=== PATIENT | male | born 1995 | race Caucasian/White ===

== ENCOUNTER 2017-10-30 15:01 | Emergency (ER) | payer SELFPAY ==
[2017-10-30 15:36] LABS: ADD MAN DIFF? NO
[2017-10-30 15:44] LABS: BASO % 1 % (0-3); EOS # 0.1 x10^3/uL (0.0-0.7); EOS % 1 % (0-3); HEMATOCRIT 49.5 % (39.0-53.0); HEMOGLOBIN 17.2 g/dL (13.0-17.5); LYMPH # 1.6 x10^3/uL (1.0-4.8); LYMPH % 19 % (24-48); MEAN CORPUSCULAR HEMOGLOBIN 33 pg (25-35); MEAN CORPUSCULAR HGB CONC 35 g/dL (31-37); MEAN CORPUSCULAR VOLUME 94 fL (79-100); MONO # 0.9 x10^3/uL (0.0-1.1); MONO % 11 % (0-9); NEUT # 5.9 x10^3uL (1.8-7.7); NEUT % 69 % (31-73); PLATELET COUNT 210 x10^3/uL (140-400); RED BLOOD COUNT 5.29 x10^6/uL (4.30-5.70); RED CELL DISTRIBUTION WIDTH 14.1 % (11.5-14.5); WHITE BLOOD COUNT 8.5 x10^3/uL (4.0-11.0)
[2017-10-30] MEDS: IV NORMAL SALINE 1000ML BAG 1,000 ML IV ×2 (15:46)
[2017-10-30] MEDS: LIDO:MAALOX:DONNATAL 1:1:1 15 ML SINGLE DOSE SWSW ×2 (15:46)
[2017-10-30] MEDS: KETOROLAC 30 MG/ML INJ. IV ×2 (15:46)
[2017-10-30 15:47] LABS: AMPHETAMINE/METHAMPHETAMINE NEG (NEG); BARBITURATES NEG (NEG); BENZODIAZEPINES NEG (NEG); CANNABINOIDS POS (NEG); COCAINE NEG (NEG); ETHANOL, URINE NEG (NEG); METHADONE NEG (NEG); OPIATES NEG (NEG); PHENCYCLIDINE NEG (NEG)
[2017-10-30 15:48] LABS: INR 1.1 (0.8-1.1); PARTIAL THROMBOPLASTIN TIME 31 SEC (24-38); PROTHROMBIN TIME PATIENT 13.9 SEC (11.7-14.0)
[2017-10-30 16:06] LABS: ETHANOL < 10 mg/dL (0-10)
[2017-10-30 16:13] LABS: ALBUMIN 4.6 g/dL (3.4-5.0); ALBUMIN/GLOBULIN RATIO 1.4 (1.0-1.7); ALK PHOS 79 U/L (46-116); ALT (SGPT) 45 U/L (16-63); ANION GAP 12 (6-14); AST (SGOT) 25 U/L (15-37); BLOOD UREA NITROGEN 15 mg/dL (8-26); CARBON DIOXIDE 26 mmol/L (21-32); CHLORIDE 100 mmol/L (98-107); CREATINE KINASE 132 U/L (39-308); GLUCOSE 63 mg/dL (70-99); MAGNESIUM 2.2 mg/dL (1.8-2.4); POTASSIUM 3.6 mmol/L (3.5-5.1); SODIUM 138 mmol/L (136-145); TOTAL BILIRUBIN 0.5 mg/dL (0.2-1.0)
[2017-10-30 16:13] LABS: TROPONINI < 0.017 ng/mL (0.000-0.055)
[2017-10-30 16:20] LABS: NT-PRO BNP 10 pg/mL (0-124)
[2017-10-30 16:21] LABS: BUN/CREATININE RATIO 15 (6-20); CALCIUM 9.8 mg/dL (8.5-10.1); GFR 92.6; LIPASE 109 U/L (73-393)
[2017-10-30 16:43] LABS: D-DIMER < 0.27 ug/mlFEU (0.00-0.50)
== END 2017-10-30 17:49 | disposition home or self-care (01) ==
LOC: ER 15:01
DX: R07.89 Other chest pain (principal); R11.0 Nausea; R10.9 Unspecified abdominal pain; F41.9 Anxiety disorder, unspecified; F31.9 Bipolar disorder, unspecified; F90.9 Attention-deficit hyperactivity disorder, unspecified type; F17.210 Nicotine dependence, cigarettes, uncomplicated
CPT/HCPCS: 36415; 71045; 80053; 80307; 82550; 83690; 83735; 83880; 84484; 85025; 85379; 85610; 85730; 96374; 96375; 99285-25; G0480; J1885; J2060; J7030

== ENCOUNTER 2018-11-16 09:06 | Emergency (ER) | payer SELFPAY ==
[~2018-11-16] VITALS: Ht 172.7 cm; Wt 74.8 kg
[~2018-11-16 09:06] MED LIST: OMEP20TA63 PO
[2018-11-16] MEDS ORDERED: IV NORMAL SALINE 1000ML BAG 1,000 ML IV ONE (09:30)
[2018-11-16] MEDS ORDERED: FAMOTIDINE 20 MG/2 ML VIAL IVP ONE (09:30)
[2018-11-16] MEDS ORDERED: ONDANSETRON PF 4 MG/2 ML VIAL. IV ONE (09:30)
--- NOTE | 2018-11-16 09:43 | PHYS DOC ---
Past Medical History Past Medical History: Bipolar, Other Additional Past Medical Histor: ADHD Past Surgical History: No Surgical History Alcohol Use: Heavy Drug Use: Marijuana Adult General Chief Complaint Chief Complaint: HYPERVENTILATION HPI HPI Patient is a 23 year old male with history of bipolar, undiagnosed anxiety, who presents to the ED today with multiple complaints. Patient states this morning he woke up, did his normal routine which includes smoking cigarette, smoking 1 g of marijuana and he was on his way to work being driven by the grandfather, patient states he developed lightheadedness, he states he became short of air, he states his fingers started cramping up, he states his grandfather took him to the fire station to be evaluated and be taken to the emergency room. Patient is also complaining of nausea but no vomiting. He states he gets his marijuana from the same dealer and there is nothing unusual about the marijuana he smoked today. Patient states he is also feeling some chest tightness. He states he has had chest tightness for over 1 year. He states he has actually been seen in the ED before for chest tightness. Patient appears anxious. Unable to rate his chest tightness to me. Unable to prescribed anything that exacerbates or making his chest tightness worse. Review of Systems Review of Systems Constitutional: Denies fever or chills [] Eyes: Denies change in visual acuity, redness, or eye pain [] HENT: Denies nasal congestion or sore throat [] Respiratory: Denies cough or shortness of breath [] Cardiovascular: Reports chest tightness GI: Reports nausea. Denies abdominal pain,vomiting, bloody stools or diarrhea [] : Denies dysuria or hematuria [] Musculoskeletal: Denies back pain or joint pain [] Integument: Denies rash or skin lesions [] Neurologic: Reports lightheadedness, denies focal weakness or sensory changes [] Psych:anxiety All other systems were reviewed and found to be within normal limits, except as documented in this note. Current Medications Current Medications Current Medications Medications (Trade) Dose Ordered Sig/Cheng Start Time Stop Time Status Last Admin Dose Admin Famotidine (Pepcid Vial) 20 mg 1X ONCE 11/16/18 09:30 11/16/18 09:31 DC 11/16/18 09:40 20 MG Ondansetron HCl (Zofran) 4 mg 1X ONCE 11/16/18 09:30 11/16/18 09:31 DC 11/16/18 09:40 4 MG Sodium Chloride 1,000 ml @ 1,000 mls/hr 1X ONCE 11/16/18 09:30 11/16/18 10:29 DC 11/16/18 09:30 1,000 MLS/HR Allergies Allergies Allergies Coded Allergies Type Severity Reaction Last Updated Verified No Known Drug Allergies 09/01/15 No Physical Exam Physical Exam Constitutional: Well developed, well nourished, no acute distress, non-toxic appearance. [] HENT: Normocephalic, atraumatic, bilateral external ears normal, oropharynx moist, no oral exudates, nose normal. [] Eyes: PERRLA, EOMI, conjunctiva normal, no discharge. [] Neck: Normal range of motion, no tenderness, supple, no stridor. [] Cardiovascular:tachycardic Lungs & Thorax: Bilateral breath sounds clear to auscultation [] Abdomen: Bowel sounds normal, soft, no tenderness, no masses, no pulsatile masses. [] Skin: Warm, dry, no erythema, no rash. [] Back: No tenderness, no CVA tenderness. [] Extremities: No tenderness, no cyanosis, no clubbing, ROM intact, no edema. [] Neurologic: Alert and oriented X 3, normal motor function, normal sensory function, no focal deficits noted. [] Psychologic: Anxious Current Patient Data Vital Signs Vital Signs Date Time Temp Pulse Resp B/P (MAP) Pulse Ox O2 Delivery O2 Flow Rate FiO2 11/16/18 09:19 97.4 121 26 155/79 (104) 100 Room Air 97.4 Lab Values Laboratory Tests Test 11/16/18 09:32 White Blood Count 6.4 x10^3/uL (4.0-11.0) Red Blood Count 5.26 x10^6/uL (4.30-5.70) Hemoglobin 17.2 g/dL (13.0-17.5) Hematocrit 50.0 % (39.0-53.0) Mean Corpuscular Volume 95 fL (79-100) Mean Corpuscular Hemoglobin 33 pg (25-35) Mean Corpuscular Hemoglobin Concent 34 g/dL (31-37) Red Cell Distribution Width 13.7 % (11.5-14.5) Platelet Count 198 x10^3/uL (140-400) Neutrophils (%) (Auto) 72 % (31-73) Lymphocytes (%) (Auto) 16 % (24-48) L Monocytes (%) (Auto) 10 % (0-9) H Eosinophils (%) (Auto) 1 % (0-3) Basophils (%) (Auto) 1 % (0-3) Neutrophils # (Auto) 4.6 x10^3uL (1.8-7.7) Lymphocytes # (Auto) 1.1 x10^3/uL (1.0-4.8) Monocytes # (Auto) 0.6 x10^3/uL (0.0-1.1) Eosinophils # (Auto) 0.1 x10^3/uL (0.0-0.7) Basophils # (Auto) 0.0 x10^3/uL (0.0-0.2) Prothrombin Time 13.7 SEC (11.7-14.0) Prothrombin Time INR 1.1 (0.8-1.1) PTT 27 SEC (24-38) D-Dimer (Alexa) 0.27 ug/mlFEU (0.00-0.50) Urine Color Yellow Urine Clarity Clear Urine pH 7.0 Urine Specific [place] 1.010 Urine Protein Negative mg/dL (NEG-TRACE) Urine Glucose (UA) Negative mg/dL (NEG) Urine Ketones (Stick) Trace mg/dL (NEG) Urine Blood Negative (NEG) Urine Nitrite Negative (NEG) Urine Bilirubin Negative (NEG) Urine Urobilinogen Dipstick 0.2 mg/dL (0.2 mg/dL) Urine Leukocyte Esterase Trace (NEG) Urine RBC 6-10 /HPF (0-2) Urine WBC >40 /HPF (0-4) Urine Squamous Epithelial Cells Few /LPF Urine Bacteria Mod /HPF (0-FEW) Sodium Level 138 mmol/L (136-145) Potassium Level 3.5 mmol/L (3.5-5.1) Chloride Level 99 mmol/L (98-107) Carbon Dioxide Level 24 mmol/L (21-32) Anion Gap 15 (6-14) H Blood Urea Nitrogen 9 mg/dL (8-26) Creatinine 1.1 mg/dL (0.7-1.3) Estimated GFR (Cockcroft-Gault) 82.2 BUN/Creatinine Ratio 8 (6-20) Glucose Level 126 mg/dL (70-99) H Calcium Level 9.6 mg/dL (8.5-10.1) Magnesium Level 1.6 mg/dL (1.8-2.4) L Total Bilirubin 0.6 mg/dL (0.2-1.0) Aspartate Amino Transferase (AST) 19 U/L (15-37) Alanine Aminotransferase (ALT) 21 U/L (16-63) Alkaline Phosphatase 79 U/L (46-116) Troponin I Quantitative < 0.017 ng/mL (0.000-0.055) Total Protein 8.1 g/dL (6.4-8.2) Albumin 4.4 g/dL (3.4-5.0) Albumin/Globulin Ratio 1.2 (1.0-1.7) Lipase 54 U/L (73-393) L Thyroid Stimulating Hormone (TSH) 1.099 uIU/mL (0.358-3.74) Urine Opiates Screen Neg (NEG) Urine Methadone Screen Neg (NEG) Urine Barbiturates Neg (NEG) Urine Phencyclidine Screen Neg (NEG) Urine Amphetamine/Methamphetamine Neg (NEG) Urine Benzodiazepines Screen Neg (NEG) Urine Cocaine Screen Neg (NEG) Urine Cannabinoids Screen Pos (NEG) Ethyl Alcohol Level < 10 mg/dL (0-10) Urine Ethyl Alcohol Neg (NEG) Laboratory Tests 11/16/18 09:32 Laboratory Tests 11/16/18 09:32 EKG EKG 09:[address] Umaña sinus tachycardia heart rate 114 no STEMI[] Radiology/Procedures Radiology/Procedures []PROCEDURE: PORTABLE CHEST 1V PORTABLE CHEST 1V Clinical indications: Shortness of air, CONFUSION,NUMBNESS, SLURRED SPEECH, PATIENT SAID THIS ALL STARTED THIS MORNING OUT OF THE BLUE. COMPARISON: October 30, 2017. Findings: No acute lung infiltrate or pleural effusion or pulmonary edema or lung mass or pneumothorax is seen. The heart size, pulmonary vasculature, mediastinum and both irma are unremarkable. Impression: No acute radiographic abnormality is seen. Electronically signed by: Lul Schultz MD (11/16/2018 9:41 AM) [id number] DICTATED and SIGNED BY: LUL SCHULTZ MD DATE: 11/16/18 0941 Course & Med Decision Making Course & Med Decision Making Pertinent Labs and Imaging studies reviewed. (See chart for details) This is a 23-year-old male patient presenting to the ED today with multiple complaints, see history of present illness, symptoms include lightheadedness, dizziness, nausea, chest tightness, symptoms began after smoking marijuana. Drug screen positive for marijuana use. Patient arrives in the ED with a heart rate of 120s, respiration 26. Blood pressure 155/76. Labs are negative for any acute findings including cardiac work up and D-dimer. Patient was given IV fluids. Feeling better. HR down to the 90's. D/c to home. F/u with PCP i recommended antianxiety. Also encouraged to consider not using marijuana. Patient not interested in rehabilitation. Dragon Disclaimer Dragon Disclaimer This electronic medical record was generated, in whole or in part, using a voice recognition dictation system. Departure Departure Impression: Primary Impression: Anxiety Additional Impression: Marijuana use Disposition: HOME, SELF-CARE Condition: STABLE Referrals: NO PCP (PCP) Follow-up with your own doctor or [facility] in the next 1 week Patient Instructions: Anxiety and Panic Attacks, Marijuana Abuse and Chemical Dependency Additional Instructions: You were evaluated in the emergency room. You can consider not using marijuana and see if this will improve your symptoms. Consider following up with your doctor to be put on anxiety medicine. Come back to the ED at any point symptoms worsen. Scripts Ondansetron Hcl (ZOFRAN) 4 Mg Tablet 1 TAB PO Q6HRS, #20 TAB Prov: CHLOE HARVEY APRN 11/16/18 Problem Qualifiers CHLOE HARVEY APRN Nov 16, 2018 09:43
[2018-11-16 09:49] LABS: BASO % 1 % (0-3); EOS # 0.1 x10^3/uL (0.0-0.7); EOS % 1 % (0-3); HEMOGLOBIN 17.2 g/dL (13.0-17.5); LYMPH # 1.1 x10^3/uL (1.0-4.8); LYMPH % 16 % (24-48); MEAN CORPUSCULAR HEMOGLOBIN 33 pg (25-35); MEAN CORPUSCULAR HGB CONC 34 g/dL (31-37); MEAN CORPUSCULAR VOLUME 95 fL (79-100); MONO # 0.6 x10^3/uL (0.0-1.1); MONO % 10 % (0-9); NEUT # 4.6 x10^3uL (1.8-7.7); NEUT % 72 % (31-73); PLATELET COUNT 198 x10^3/uL (140-400); RED BLOOD COUNT 5.26 x10^6/uL (4.30-5.70); RED CELL DISTRIBUTION WIDTH 13.7 % (11.5-14.5); WHITE BLOOD COUNT 6.4 x10^3/uL (4.0-11.0)
[2018-11-16 10:01] LABS: BILIRUBIN,URINE NEGATIVE (NEG); CALCIUM 9.6 mg/dL (8.5-10.1); CLARITY,URINE CLEAR; COLOR,URINE YELLOW; CREATININE 1.1 mg/dL (0.7-1.3); GFR 82.2; NITRITE,URINE NEGATIVE (NEG); POTASSIUM 3.5 mmol/L (3.5-5.1); PROTEIN,URINE NEGATIVE (NEG-TRACE); PROTHROMBIN TIME PATIENT 13.7 SEC (11.7-14.0); UROBILINOGEN,URINE 0.2 mg/dL (0.2 mg/dL)
[2018-11-16 10:08] LABS: ALBUMIN 4.4 g/dL (3.4-5.0); ALBUMIN/GLOBULIN RATIO 1.2 (1.0-1.7); BARBITURATES NEG (NEG); BENZODIAZEPINES NEG (NEG); CANNABINOIDS POS (NEG); COCAINE NEG (NEG); MAGNESIUM 1.6 mg/dL (1.8-2.4); METHADONE NEG (NEG); OPIATES NEG (NEG); PHENCYCLIDINE NEG (NEG); TOTAL BILIRUBIN 0.6 mg/dL (0.2-1.0); TOTAL PROTEIN 8.1 g/dL (6.4-8.2)
[2018-11-16 10:10] LABS: AMPHETAMINE/METHAMPHETAMINE NEG (NEG)
[2018-11-16 10:11] LABS: D-DIMER 0.27 ug/mlFEU (0.00-0.50)
[2018-11-16 10:16] LABS: BACTERIA,URINE MOD /HPF (0-FEW); SQUAMOUS EPITHELIAL CELL,UR FEW /LPF; WBC,URINE >40 /HPF (0-4)
[2018-11-16 10:30] VITALS: BP 127/69
[2018-11-16] MEDS ORDERED: ONDA4TAB7 PO (10:55)
--- NOTE | 2018-11-16 14:18 | EKG ---
[facility] [address] [place] [id number] Test Date: 2018-11-16 Test Time: 09:14:11 Pat Name: ELIZABETH MELENDEZ Department: Room: Gender: [employer] Inspector: : 1995 Requested By: CHLOE HARVEY Order Number: [id number] Reading MD: Leif Lomas Measurements Intervals [place] Rate: P: NV: QRS: QRSD: T: QT: QTc: Interpretive Statements Compared to ECG 09/28/2015 13:28:51 Sinus tachycardia no longer present Electronically Signed On 11-17-2018 9:11:55 SUSTAINABILITY DIRECTOR by Leif Lomas
== END 2018-11-16 11:06 | disposition home or self-care (01) ==
LOC: ER 09:06
DX: F41.9 Anxiety disorder, unspecified (principal); R42 Dizziness and giddiness; R07.89 Other chest pain; R00.0 Tachycardia, unspecified; F12.20 Cannabis dependence, uncomplicated; F31.9 Bipolar disorder, unspecified; F17.210 Nicotine dependence, cigarettes, uncomplicated; F10.20 Alcohol dependence, uncomplicated; Y90.0 Blood alcohol level of less than 20 mg/100 ml
CPT/HCPCS: 36415; 71045; 80053; 80307; 81001; 83690; 83735; 84443; 84484; 85025; 85379; 85610; 85730; 93005; 96361; 96374; 96375; 99284; G0480; J2405; J3490; J7030